=== PATIENT | male | born 1985 | race Caucasian/White ===

== ENCOUNTER → 2021-08-16 00:01 | Outpatient (BNVA) | payer BC, MEDICAID, SELFPAY | PROVIDERS: Visit Provider Registered Nurse | DX: F41.8 Other specified anxiety disorders (principal) | CPT/HCPCS: 80053; 84443; 85025 ==

== ENCOUNTER → 2021-10-17 08:55 | Outpatient (BNVA) | payer BC, MEDICAID, SELFPAY | PROVIDERS: PCP Registered Nurse; Visit Provider Nurse Practitioner Psychiatric/Mental Health | DX: F15.10 Other stimulant abuse, uncomplicated (principal); T62.2X1A Toxic effect of other ingested (parts of) plant(s), accidental (unintentional), initial encounter | CPT/HCPCS: 99215 ==

== ENCOUNTER → 2021-10-28 08:47 | Outpatient (BNVA) | payer BC, MEDICAID, SELFPAY | PROVIDERS: PCP Registered Nurse; Visit Provider Nurse Practitioner Psychiatric/Mental Health | DX: F41.9 Anxiety disorder, unspecified (principal); F32.A Depression, unspecified; T62.2X1A Toxic effect of other ingested (parts of) plant(s), accidental (unintentional), initial encounter; F15.10 Other stimulant abuse, uncomplicated | CPT/HCPCS: 99204 ==

== ENCOUNTER → 2021-12-11 08:58 | Outpatient (BNVA) | payer BC, MEDICAID, SELFPAY | PROVIDERS: PCP Registered Nurse; Visit Provider Orthopaedic Surgery | DX: R22.31 Localized swelling, mass and lump, right upper limb (principal); Z87.891 Personal history of nicotine dependence | CPT/HCPCS: 99203 ==

== ENCOUNTER 2021-12-26 11:02 | Day surgery (SDC) | payer BC, MEDICAID, SELFPAY ==
[2021-12-25 14:14] VITALS: BMI 24.1
[2021-12-26 11:16] VITALS: BMI 24.1
[2021-12-26] MEDS: sodium chloride 0.9% 1,000 ML 30 ML IV (11:40)
--- NOTE | 2021-12-26 12:19 | ANES.PREANE2 ---
Pre-Anesthetic Assessment Height/Weight: Height 1.57 m Weight 59.874 kg Preop Diagnosis: Mass right hand Operation Date: 12/26/21 12:20 Proposed Procedures p excision of mass right hand 65552/r22.31(Not Applicable) - Manjinder Kingston MD Familial anesthetic complications: None Was Beta Garfield taken within 24 hours: N/A Was Clonidine taken within 24 hours: N/A Last intake: Intake Last Liquid Date 12/25/21 Last Liquid Time 23:00 Last Solid Date 12/25/21 Last Solid Time 11:00 Social Tobacco (vapes) and No alcohol Exam alert, oriented x 3, clear to auscultation bilaterally and regular rate & rhythm Airway Submandibular: within normal limits Cervical ROM: within normal limits Mallampati: Class II Dentition: chipped Neuropsych Anxiety and Depression Anesthetic Plan ASA status: 2 Anesthesia: Choice Medications/Allergies Home Medications Medication Instructions Recorded Confirmed Last Taken Type cyclobenzaprine 10 mg tablet 10 mg PO DAILY PRN 30 Days #30 tab 10/22/21 12/25/21 Unknown Rx escitalopram oxalate 10 mg tablet 10 mg PO DAILY #30 tab 12/05/21 12/26/21 12/26/21 Rx Allergies Allergy/AdvReac Type Severity Reaction Status Date / Time No Known Allergies Allergy Verified 12/25/21 14:12 Current Medications Generic Name Dose Route Start Last Admin Trade Name Freq PRN Reason Stop Dose Admin Sodium Chloride 1,000 mls @ 30 mls/hr 12/26/21 11:15 12/26/21 11:40 Sodium Chloride 0.9% IV 12/27/21 11:14 30 mls/hr .Q24H VERONICA Administration PFSH Anesthesia Medical History Anxiety and depression Caffeine abuse History of bipolar disorder Psychiatric care Family History Father Bipolar 1 disorder Depression Social History Smoking and tobacco status: former smoker (Vapes) Quit status (tobacco): not considering quitting Second hand smoke exposure: No Alcohol intake: current Alcohol intake frequency: holidays/special occasions only Adopted: No Caregiver/support person: No Lives independently: No Household members: spouse Marital status: service: No Current occupational status: employed Sexually active: Yes Current gender identity: Male Data Anesthesia Cardiac Studies: No Data to Display
[2021-12-26 14:13] VITALS: BP 110/68; PULSE 79; RESP 18; TEMP 36.5; O2SAT 99
--- NOTE | 2021-12-26 14:15 | P.OP_ITS ---
Operative Report Date of procedure: December 26, 2021 Pre-op diagnosis: Preop Diagnosis Mass right hand Post-op diagnosis: same Procedure done: Excision deep mass right hand Pathology: none sent Pathology: Fragments of the thenar mass or sent to pathology Surgeon: Manjinder Kingston Anesthesia: MAC Estimated blood loss (mL): 2 Tourniquet time (min): 11 Findings: The patient had a cystic mass over his hypothenar eminence approximately 8 mm in diameter filled with caseous material. The clinical appearance was most consistent with an epidermal inclusion cyst. 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 He was prepped and draped in the supine position with his right hand exposed. Sedation was provided by anesthesia. A timeout was performed. His skin was infiltrated with approximately 10 cc of quarter percent Marcaine. A 2 cm longitudinal incision was made over the mass. Dissection was carried down bluntly to the mass which was perforated revealing caseous type exudate. The capsule was then excised with scissors circumferentially and fragments of the mass sent for final pathology. The wound was irrigated with saline. Skin edges were closed with 3- 0 Prolene. Sterile dressings were applied. The patient was taken to recovery room in stable condition.
[2021-12-26 14:18] VITALS: BP 117/60; PULSE 68; RESP 18; O2SAT 96
[2021-12-26 14:22] VITALS: BP 112/58; PULSE 66; RESP 18; TEMP 36.2; O2SAT 98
[2021-12-26 14:29] VITALS: BP 129/63; PULSE 74; RESP 18; TEMP 36.2; O2SAT 98
--- NOTE | 2021-12-26 15:03 | ANE.PACU2 ---
Inpatient post-anesthesia follow up: Airway intact: Yes Vital signs: Temperature 97.1 F Pulse Rate 74 Respiratory Rate 18 Blood Pressure 129/63 Pulse Oximetry 98 Oxygen Delivery Me thod Room Air Oxygen Flow Rate Fraction of Inspir ed Oxygen Hydration adequate: Yes Nausea and vomiting: No Pain level: 1 Mental status: Baseline
--- NOTE | 2021-12-27 11:24 | W.PM.OPSUD ---
Surgery/Procedure H&P Update DATE OF PROCEDURE: December 26, 2021 DATE H&P PERFORMED: 12/11/21 H&P UPDATE INFORMATION: I have reviewed H&P completed within last 30 days PREOP DIAGNOSIS: Mass right hand PLANNED PROCEDURE: Operation Date: 12/26/21 12:20 Proposed Procedures p excision of mass right hand 62448/r22.31(Not Applicable) - Manjinder Kingston MD
== END 2021-12-26 14:42 | disposition home or self-care (01) ==
PROVIDERS: PCP Registered Nurse; Visit Provider Orthopaedic Surgery
PROC: (CPT 11421; principal; 2021-12-26 12:10)
DX: L72.0 Epidermal cyst (principal); F41.9 Anxiety disorder, unspecified; F32.9 Major depressive disorder, single episode, unspecified; F17.290 Nicotine dependence, other tobacco product, uncomplicated
CPT/HCPCS: 11421; 88307; J0690; J2250; J2704; J3010; J3490; J7030

== ENCOUNTER → 2023-04-01 09:16 | Outpatient (BNVA) | payer BC, MEDICAID, SELFPAY | PROVIDERS: PCP Registered Nurse; Visit Provider Registered Nurse | DX: F32.A Depression, unspecified (principal); F41.9 Anxiety disorder, unspecified; R09.1 Pleurisy; F12.90 Cannabis use, unspecified, uncomplicated; Z72.0 Tobacco use | CPT/HCPCS: 80053; 82306; 85025 ==

== ENCOUNTER → 2024-09-09 11:47 | Outpatient (BNVA) | payer BC, MEDICAID, SELFPAY | PROVIDERS: PCP Registered Nurse; Visit Provider Registered Nurse | DX: F41.9 Anxiety disorder, unspecified (principal); F32.A Depression, unspecified; F19.20 Other psychoactive substance dependence, uncomplicated | CPT/HCPCS: 80053; 81000; 82306; 82607; 82746; 84443; 85025 ==

== ENCOUNTER → 2025-03-30 11:18 | Outpatient (BNVA) | payer BC, SELFPAY | PROVIDERS: PCP Registered Nurse; Visit Provider Nurse Practitioner Psychiatric/Mental Health | DX: Z79.899 Other long term (current) drug therapy (principal) | CPT/HCPCS: 80053; 80061; 82306; 83036 ==